=== PATIENT | female | born 1975 ===

== ENCOUNTER 2017-04-23 11:10 | Emergency (ER) | payer OTHER ==
[~2017-04-23] VITALS: Ht 154.9 cm; Wt 68.0 kg
[~2017-04-23 11:10] MED LIST: ALPR.25 PO; AMOCLA875 PO; AMOX500 PO; ATOR40TA PO; ATOR80 PO; AZIT250 PO; Aspirin EC81 MG PO; BRILINTA60 MG PO; CARV25 PO; CLOP75 PO; CODACE30 PO; FURO40 PO; HYDACE5 PO; LISI20 PO; POTCHL20ER PO; PROM25 PO; RXCODACET PO; Zithromax250 MG PO; [UNRECOGNIZED DRUG - REMARK]
[2017-04-23 13:06] LABS: BASOPHILS ABSOLUTE AUTO 0.03 K/mm3 (0.00-0.23); BASOPHILS PERCENT AUTO 1 % (0-2); EOSINOPHILS ABSOLUTE AUTO 0.39 K/mm3 (0.00-0.68); EOSINOPHILS PERCENT AUTO 6 % (0-6); Hematocrit 43.4 % (33.0-51.0); Hemoglobin 14.1 g/dL (11.5-16.0); IMMATURE GRAN ABSOLUTE AUTO 0.01 K/mm3 (0.00-0.10); IMMATURE GRAN PERCENT AUTO 0 % (0-1); LYMPHOCYTES ABSOLUTE AUTO 1.42 K/mm3 (0.84-5.20); LYMPHOCYTES PERCENT AUTO 22 % (21-46); MONOCYTES ABSOLUTE AUTO 0.47 K/mm3 (0.16-1.47); MONOCYTES PERCENT AUTO 7 % (4-13); Mean Corpuscular HGB 34.1 pg (26.0-34.0); Mean Corpuscular HGB Conc 32.5 g/dL (31.5-36.5); Mean Corpuscular Volume 105 fL (80-100); Mean Platelet Volume 10.3 fL (9.1-12.4); NEUTROPHILS ABSOLUTE AUTO 4.21 K/mm3 (1.96-9.15); NEUTROPHILS PERCENT AUTO 64 % (41-73); Platelet Count 240 K/mm3 (150-400); RDW Coefficient Variation 14.3 % (11.7-14.2); RDW Standard Deviation 55.4 fL (35.1-46.3); Red Blood Cell Count 4.13 M/mm3 (3.80-5.20); White Blood Cell Count 6.53 K/mm3 (4.00-11.30)
[2017-04-23 13:27] LABS: Alanine Aminotransfer (ALT/SGP 19 U/L (12-78); Albumin, Blood 3.2 g/dL (3.4-5.0); Albumin/Globulin Ratio 0.8 (0.8-1.8); Alk Phos 112 U/L (50-136); Anion Gap 8 mmol/L (6-16); Aspartate Aminotrans (AST/SGOT 20 U/L (12-37); Bilirubin, Total 0.3 mg/dL (0.1-1.0); Blood Urea Nitrogen 14 mg/dL (8-24); Bun/Creatinine Ratio 15.5 (12.0-20.0); CO2, Blood 22 mmol/L (21-32); Calcium, Blood 8.4 mg/dL (8.5-10.1); Chloride, Blood 110 mmol/L (98-108); Creatinine, Blood 0.91 mg/dL (0.40-1.00); Glomerular Filtration Rate >60 (60-); Glucose, Blood 129 mg/dL (70-99); Sodium, Blood 140 mmol/L (136-145); Total Protein, Blood 7.2 g/dL (6.4-8.2); Troponin I <0.015 ng/mL (0.000-0.040)
[2017-12-29] MEDS ORDERED: CEFU500T30 PO (11:16)
[2018-01-19] MEDS ORDERED: CARV25 PO (21:47)
[2018-01-19] MEDS ORDERED: Augmentin 875-1 EACH PO (21:52)
== END 2017-04-23 14:50 | disposition left against medical advice (07) ==
LOC: ER 11:10
PROVIDERS: Emergency Medicine
DX: I10 Essential (primary) hypertension (principal); R94.31 Abnormal electrocardiogram [ECG] [EKG]; R06.02 Shortness of breath; Z88.8 Allergy status to other drugs, medicaments and biological substances; Z79.82 Long term (current) use of aspirin; Z79.899 Other long term (current) drug therapy; I25.2 Old myocardial infarction; F17.200 Nicotine dependence, unspecified, uncomplicated
CPT/HCPCS: 36415; 71046; 80053; 81000; 81025; 83880; 84484; 85025; 93005; 93010; 99283

== ENCOUNTER 2017-06-08 06:05 | Inpatient (IN) | payer OTHER ==
[~2017-06-08] VITALS: Ht 154.9 cm; Wt 75.3 kg
[2017-06-08 06:46] LABS: BASOPHILS ABSOLUTE AUTO 0.05 K/mm3 (0.00-0.23); BASOPHILS PERCENT AUTO 1 % (0-2); EOSINOPHILS ABSOLUTE AUTO 0.28 K/mm3 (0.00-0.68); EOSINOPHILS PERCENT AUTO 3 % (0-6); Hemoglobin 13.6 g/dL (11.5-16.0); IMMATURE GRAN ABSOLUTE AUTO 0.03 K/mm3 (0.00-0.10); IMMATURE GRAN PERCENT AUTO 0 % (0-1); LYMPHOCYTES ABSOLUTE AUTO 1.52 K/mm3 (0.84-5.20); LYMPHOCYTES PERCENT AUTO 16 % (21-46); MONOCYTES ABSOLUTE AUTO 0.76 K/mm3 (0.16-1.47); MONOCYTES PERCENT AUTO 8 % (4-13); Mean Corpuscular HGB Conc 33.2 g/dL (31.5-36.5); Mean Corpuscular Volume 103 fL (80-100); Mean Platelet Volume 10.6 fL (9.1-12.4); NEUTROPHILS ABSOLUTE AUTO 6.77 K/mm3 (1.96-9.15); NEUTROPHILS PERCENT AUTO 72 % (41-73); Platelet Count 244 K/mm3 (150-400); RDW Coefficient Variation 13.8 % (11.7-14.2); RDW Standard Deviation 52.2 fL (35.1-46.3); White Blood Cell Count 9.41 K/mm3 (4.00-11.30)
[2017-06-08 07:02] LABS: Anion Gap 8 mmol/L (6-16); Blood Urea Nitrogen 13 mg/dL (8-24); CO2, Blood 22 mmol/L (21-32); Calcium, Blood 8.4 mg/dL (8.5-10.1); Chloride, Blood 109 mmol/L (98-108); Creatinine, Blood 0.93 mg/dL (0.40-1.00); Glomerular Filtration Rate >60 (60-); Glucose, Blood 116 mg/dL (70-99); Potassium, Blood 3.8 mmol/L (3.5-5.5); Sodium, Blood 139 mmol/L (136-145); Troponin I 0.039 ng/mL (0.000-0.040)
[2017-06-08 14:02] LABS: Magnesium, Blood 1.9 mg/dL (1.6-2.4); Troponin I <0.015 ng/mL (0.000-0.040)
[2017-06-08 14:05] LABS: Phosphorus, Blood 3.2 mg/dL (2.5-4.9)
[2017-06-08 16:53] LABS: U Amphetamine Screen DETECTED; U Barbituate Screen Not Detected; U Benzodiazapine Screen DETECTED; U Buprenorphine Screen Not Detected; U Cannabinoids Screen Not Detected; U Cocaine Screen Not Detected; U Methadone Screen Not Detected; U Methamphetamine Screen DETECTED; U Opiates Screen Not Detected; U Oxycodone Screen Not Detected; U Phencyclidine Screen Not Detected; U Propoxyphene Screen Not Detected
[2017-06-09 05:19] LABS: BASOPHILS ABSOLUTE AUTO 0.04 K/mm3 (0.00-0.23); BASOPHILS PERCENT AUTO 1 % (0-2); EOSINOPHILS ABSOLUTE AUTO 0.13 K/mm3 (0.00-0.68); EOSINOPHILS PERCENT AUTO 2 % (0-6); Hematocrit 44.5 % (33.0-51.0); Hemoglobin 14.8 g/dL (11.5-16.0); IMMATURE GRAN ABSOLUTE AUTO 0.02 K/mm3 (0.00-0.10); IMMATURE GRAN PERCENT AUTO 0 % (0-1); LYMPHOCYTES ABSOLUTE AUTO 1.28 K/mm3 (0.84-5.20); LYMPHOCYTES PERCENT AUTO 16 % (21-46); MONOCYTES ABSOLUTE AUTO 0.84 K/mm3 (0.16-1.47); MONOCYTES PERCENT AUTO 10 % (4-13); Mean Corpuscular HGB 33.6 pg (26.0-34.0); Mean Corpuscular HGB Conc 33.3 g/dL (31.5-36.5); Mean Corpuscular Volume 101 fL (80-100); Mean Platelet Volume 10.5 fL (9.1-12.4); NEUTROPHILS ABSOLUTE AUTO 5.84 K/mm3 (1.96-9.15); NEUTROPHILS PERCENT AUTO 72 % (41-73); Platelet Count 289 K/mm3 (150-400); RDW Coefficient Variation 13.9 % (11.7-14.2); RDW Standard Deviation 51.9 fL (35.1-46.3); White Blood Cell Count 8.15 K/mm3 (4.00-11.30)
[2017-06-09 05:45] LABS: Albumin, Blood 3.2 g/dL (3.4-5.0); Albumin/Globulin Ratio 0.7 (0.8-1.8); Bilirubin, Total 0.7 mg/dL (0.1-1.0); Bun/Creatinine Ratio 13.7 (12.0-20.0); Calcium, Blood 8.8 mg/dL (8.5-10.1); Creatinine, Blood 1.17 mg/dL (0.40-1.00); Globulin, Blood 4.3 g/dL (2.2-4.0); Potassium, Blood 3.5 mmol/L (3.5-5.5); Total Protein, Blood 7.5 g/dL (6.4-8.2)
[2017-06-09] MEDS ORDERED: TICA90TA PO (10:41)
[2017-06-09] MEDS ORDERED: ABAT250V (10:42)
[2017-06-09 13:11] LABS: Creatine Kinase MB 1.2 ng/mL (0.0-3.6); Creatine Kinase MB Index 2.9 (0.0-4.0); Troponin I 0.057 ng/mL (0.000-0.040)
[2017-06-09 13:15] LABS: Influenza A Negative (NEGATIVE); Influenza B Negative (NEGATIVE)
[2017-06-09 18:48] LABS: Creatine Kinase MB Index 2.5 (0.0-4.0); Troponin I 0.058 ng/mL (0.000-0.040)
[2017-06-10 01:00] LABS: Creatine Kinase MB 0.9 ng/mL (0.0-3.6); Creatine Kinase MB Index 2.3 (0.0-4.0); Troponin I 0.02 ng/mL (0.000-0.040)
[2017-06-10] MEDS ORDERED: Coreg12.5 MG PO (09:43)
[2017-06-10] MEDS ORDERED: ALBU90OI INH (09:43)
[2017-06-10] MEDS ORDERED: GUAI600T33 PO (09:50)
[2017-06-10] MEDS ORDERED: FAMO20 PO (09:50)
[2017-06-10] MEDS ORDERED: FOLI1 PO (09:50)
[2017-06-10] MEDS ORDERED: LEVO750 PO (09:51)
[2017-06-10] MEDS ORDERED: Melatonin5 M1 PO (09:52)
[2017-06-10] MEDS ORDERED: MULTI FOR HER1 EAC1 PO (09:56)
[2017-06-10] MEDS ORDERED: Prednisone20 MG PO (09:57)
[2017-06-10] MEDS ORDERED: NITR.4SL SL (10:02)
[2017-06-10] MEDS ORDERED: SPIR25 PO (10:03)
[2017-06-10] MEDS ORDERED: NICO21TP TOP (10:03)
[2017-06-10] MEDS ORDERED: THIA100 PO (10:04)
== END 2017-06-10 10:18 | disposition home or self-care (01) | DRG 292 ==
LOC: ER 06:05 → MEDS 10:02 → ENPENDDIS 06-10 09:27 → MEDS 06-10 10:18
PROVIDERS: Emergency Medicine; Family Medicine
DX: I11.0 Hypertensive heart disease with heart failure (principal); J44.1 Chronic obstructive pulmonary disease with (acute) exacerbation; I16.1 Hypertensive emergency; I50.33 Acute on chronic diastolic (congestive) heart failure; F10.20 Alcohol dependence, uncomplicated; I25.10 Atherosclerotic heart disease of native coronary artery without angina pectoris; I10 Essential (primary) hypertension; F17.210 Nicotine dependence, cigarettes, uncomplicated; I25.2 Old myocardial infarction; Z91.14 Patient's other noncompliance with medication regimen; Z95.5 Presence of coronary angioplasty implant and graft
CPT/HCPCS: 36415; 71046; 80048; 80053; 82550; 82553; 83735; 83880; 84100; 84443; 84484; 85025; 87804; 93005; 93010; 93306; 94640; 94760; 94762; 96372; 96375; 96376; G0378; J0360; J1650; J1940; J1956; J2060; J2930; J7030

== ENCOUNTER 2018-08-07 02:24 | Inpatient (IN) | payer OTHER ==
[~2018-08-07] VITALS: Ht 152.4 cm; Wt 74.0 kg
[~2018-08-07 02:24] MED LIST changes: +ABAT250V; +ALBU90OI INH; +Augmentin 875-1 EACH PO; +CEFU500T30 PO; +Coreg12.5 MG PO; +FAMO20 PO; +FOLI1 PO; +GUAI600T33 PO; +LEVO750 PO; +MULTI FOR HER1 EAC1 PO; +Melatonin5 M1 PO; +NICO21TP TOP; +NITR.4SL SL; +Prednisone20 MG PO; +SPIR25 PO; +THIA100 PO; +TICA90TA PO
[2018-08-07 03:04] LABS: BASOPHILS ABSOLUTE AUTO 0.04 K/mm3 (0.00-0.23); BASOPHILS PERCENT AUTO 0 % (0-2); EOSINOPHILS PERCENT AUTO 2 % (0-6); Hemoglobin 13.9 g/dL (11.5-16.0); IMMATURE GRAN ABSOLUTE AUTO 0.02 K/mm3 (0.00-0.10); IMMATURE GRAN PERCENT AUTO 0 % (0-1); LYMPHOCYTES ABSOLUTE AUTO 1.64 K/mm3 (0.84-5.20); LYMPHOCYTES PERCENT AUTO 18 % (21-46); MONOCYTES PERCENT AUTO 5 % (4-13); Mean Corpuscular HGB 33.9 pg (26.0-34.0); Mean Corpuscular HGB Conc 32.3 g/dL (31.5-36.5); Mean Corpuscular Volume 105 fL (80-100); Mean Platelet Volume 10.5 fL (9.1-12.4); NEUTROPHILS ABSOLUTE AUTO 6.92 K/mm3 (1.96-9.15); NEUTROPHILS PERCENT AUTO 74 % (41-73); Platelet Count 214 K/mm3 (150-400); RDW Coefficient Variation 14.8 % (11.7-14.2); RDW Standard Deviation 58.2 fL (35.1-46.3); White Blood Cell Count 9.32 K/mm3 (4.00-11.30)
[2018-08-07 03:24] LABS: Alanine Aminotransfer (ALT/SGP 31 U/L (12-78); Albumin, Blood 3.5 g/dL (3.4-5.0); Alk Phos 125 U/L (50-136); Anion Gap 9 mmol/L (6-16); Aspartate Aminotrans (AST/SGOT 17 U/L (12-37); Bilirubin, Total 0.8 mg/dL (0.1-1.0); Blood Urea Nitrogen 16 mg/dL (8-24); Bun/Creatinine Ratio 17.1 (12.0-20.0); CO2, Blood 24 mmol/L (21-32); Chloride, Blood 107 mmol/L (98-108); Creatinine, Blood 0.94 mg/dL (0.40-1.00); Globulin, Blood 3.6 g/dL (2.2-4.0); Glomerular Filtration Rate >60 (60-); Glucose, Blood 109 mg/dL (70-99); Potassium, Blood 4.1 mmol/L (3.5-5.5); Sodium, Blood 140 mmol/L (136-145); Total Protein, Blood 7.1 g/dL (6.4-8.2)
--- NOTE | 2018-08-07 06:53 | NUR ---
ARRIVAL AND SHIFT ALEJANDRO PT ARRIVED TO UNIT APPROX. 0625 VIA GURNER FROM ED. PT ABLE TO TRANSFERS FROM GURNERY TO BED WITH SBA. PT ABLE TO WALK TO BATHROOM AND TOELRATED WELL. ORIENTED PT TO ROOM, UNIT AND POLICIES. ASSESSMENT COMPLETED. VITAL SIGNS STABLE, ALTHOUGHT BLOOD PRESSURE SLIGHTLY ELEVATED BUT TRENDING DOWN. WAS UNABLE TO COMPLETED MEDICATION RECONCILIATION DUE TO PT UNABLE TO KNOW MEDICATIONS AND THEIR NAMES. THERE WERE [employer] NO MEDICAITONS LISTS ON [employer] BUT PT REPORTS THAT SHE PREVIOUSLY WAS PRESCRIBED MEDICATIONS BUT HASNT TAKEN THEM. SHE REPROTS SHE GETS THEM FILLED AT [facility]. PT SLEEPY AT THIS TIME. BED IN LOW POSITION, CALL LIGHT IN REACH AND PT DENIES ANY NEEDS AT THIS TIME. WILL CONTINUE TO MONITOR UNTIL HANDOFF TO DAYSHIFT RN.
--- NOTE | 2018-08-07 10:13 | NUR ---
The pt states that she has not been taking her medications for about a year or two. States that she has been trying to get "clean" from drug use for the past year. Her last prescriptions were filled at [facility], but there is no record currently of her most recent prescriptions there. duplicating machine mechanic at this time contacting the cardiology office to get list of the pt's prescriptions as the pt was seeing Dr. Jefferson in the past.
[2018-08-07] MEDS ORDERED: Aspir 8181 MG PO (10:32)
[2018-08-07] MEDS ORDERED: ATOR40TA PO (10:33)
[2018-08-07] MEDS ORDERED: FURO40 PO (10:33)
[2018-08-07] MEDS ORDERED: CARV25 PO (10:33)
[2018-08-07] MEDS ORDERED: LISI20 PO (10:34)
[2018-08-07] MEDS ORDERED: K-Dur20 MEQ PO (10:35)
[2018-08-07] MEDS ORDERED: BRILINTA90 MG PO (10:35)
[2018-08-07] MEDS ORDERED: Micro-K10 MEQ PO (10:36)
--- NOTE | 2018-08-07 13:48 | NUR ---
Kayy awakes easily to voice. Her SO was present at bedside. she denied concerns and told me she feels she will continue getting better. I introduced the benefits and purpose of an Advanced Directive. She agreed this would be useful for her as she'd like her SO to be her MPOA. I gave her the information packet and advised that pastoral/palliative care would be available to help with its completion. She allowed me to pray for her, but was otherwise pleasantly dismissive. She wanted to sleep.
--- NOTE | 2018-08-07 13:54 | NUR ---
The pt has been candid, cheerful, and cooperative with care. She was given coreg and blood pressure and heart rate will be assessed closely. Nitroglycerin patch was removed per Dr. Abbasi to help relieve the pt's c/o headache. Ultram was given also for headache, as the pt stated she got no relief from Tylenol given early this morning for headache. An hour after the nitro patch was removed, she has no relief from the headache yet. It could of course also be due to her high blood pressure. ambulatory to the bathroom to void frequently. DEnies chest pain or difficulty breathing. Good appetite.
--- NOTE | 2018-08-07 14:18 | NUR ---
Notified of 6 beat run of ventricular tachycardia by the residential monitor tech. The pt was found sleeping, HOB eleved 45 degrees, and blood pressure taken: 169/123, heart rate 98 bpm. She denies any pain, states that even her headache is gone.
--- NOTE | 2018-08-07 16:35 | NUR ---
following apresoline administration, the pt states she feels lightheaded. She is sitting up in bed, states that she has no pain at this time, but is requesting more drink. Earlier I had explained to her about the fluid restriction. She states now "but all I've had to drink is this cup right here." I reminded her about the milk and drinks which she had with meals, too. She verbalized understanding. A popscicle was given to her at this time. Blood pressure was taken, noted 139/90. Explained to the pt that her body is probably not used to the lower pressure, as she hasn't been on medications for 1-2 years, per her own admission. She tells me now that she had high blood pressure diagnosed when she was 10 or 11 years old. I emphasized for her safety that she needs to have a staff member with her when she gets up due to her symptoms. She verbalized understanding.
--- NOTE | 2018-08-07 17:57 | NUR ---
The pt is absent from her room at this time. Telemetry monitoring has been interrupted; the pt must be out of range, perhaps outside the building smoking. 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
--- NOTE | 2018-08-07 18:08 | NUR ---
The pt returned to the room at this time; STates that she went outside to see a friend, and had a cigarette. Reminded the pt about concern for her lightheadedness and that she was going to call before getting up; she states that she forgot. Requested and strongly recommended that the patient not go outside, and not smoke anymore, for the purpose of her health, but also for the telemetry monitoring. States that she probably won't, that she will try.
--- NOTE | 2018-08-07 19:15 | NUR ---
ASSUMED CARE OF PT, REPORT RCV'D FROM SILVANA SUN. PT ALERT AND ORIENTED SITTING ON THE SIDE OF THE BED. PT STATES THAT SHE WAS "FEELING DIZZY" AFTER RECEIVING DOSE OF LASIX AND REQUESTING A COLD WASHCLOTH. PT REPOSITIONED IN BED WITH COLD WASHCLOTH ON HER NECK AND A FAN NEEDED. PT WAS REMINDED TO REQUEST ASSISTANCE BEFORE ATTEMPTING TO AMBULATE UNTIL SHE IS STEADY ON HER FEET. PT WENT OUTSIDE TO "SMOKE" DURING DAYSHIFT WITHOUT LETTING DAYSHIFT NURSE OR TELE KNOW. PT STATES SHE WILL "LET ME KNOW". PT'S LUNG SOUNDS CLEAR T/O WITH OCCASIONAL NON-PRODUCTIVE COUGH. PT ON ROOM AIR. IV IN RAC SL. PT DENIES NEEDS AT THIS TIME. PT'S DAUGHTER AT BEDSIDE. SEE FULL SHIFT ASSESSMENT.
--- NOTE | 2018-08-08 04:01 | NUR ---
PT'S DAUGHTER VICENTA CALLED AND WAS UPDATED ON PT'S STATUS.
[2018-08-08 04:14] LABS: Alanine Aminotransfer (ALT/SGP 27 U/L (12-78); Albumin, Blood 3.4 g/dL (3.4-5.0); Albumin/Globulin Ratio 0.8 (0.8-1.8); Alk Phos 133 U/L (50-136); Anion Gap 9 mmol/L (6-16); Aspartate Aminotrans (AST/SGOT 18 U/L (12-37); Bilirubin, Total 0.7 mg/dL (0.1-1.0); Blood Urea Nitrogen 28 mg/dL (8-24); Bun/Creatinine Ratio 26.7 (12.0-20.0); CO2, Blood 24 mmol/L (21-32); Calcium, Blood 8.8 mg/dL (8.5-10.1); Chloride, Blood 103 mmol/L (98-108); Creatinine, Blood 1.05 mg/dL (0.40-1.00); Globulin, Blood 4.2 g/dL (2.2-4.0); Glomerular Filtration Rate >60 (60-); Glucose, Blood 126 mg/dL (70-99); Potassium, Blood 3.8 mmol/L (3.5-5.5); Sodium, Blood 136 mmol/L (136-145); Total Protein, Blood 7.6 g/dL (6.4-8.2)
--- NOTE | 2018-08-08 06:26 | NUR ---
SHIFT SUMMARY NO ACUTE CHANGES OVERNIGHT. PT HAD 1 EPISODE OF HTN (180/130) THAT WAS CORRECTED WITH HYDRALAZINE. PT ABLE TO INDEPENDENTLY AMBULATE TO USE TOILET WITH NO C/O DIZZINESS/LIGHTHEADED. SEE SHIFT NOTES AND ASSESSMENTS. WILL REPORT TO DAYSHIFT NURSE.
--- NOTE | 2018-08-08 07:29 | NUR ---
pt laying in bed awake a/ox3, cooperative with care, follows commands well, denies pain or sob, states she feels ok, speaks very fast, and is diff to understand at times, lungs are clear dim in bases, resp even and unlabored, no cough noted, hrr, tele in place running sr per monitor, see strip, very trace edema noted to b/l le, ppp+2, cap refill <3sec, vs stable, afebrile, iv site is clear and patent, btx4, abd flat soft nontender, voids without diff, skin c/w/d, maew, joshua, call light in reach.
--- NOTE | 2018-08-08 10:39 | NUR ---
DR. PASCUAL ASKED THAT WE HOLD OFF ON HER MEDS UNTIL SHE REVIEWS THEM AND WE GET A SET OF ORTHOS. PT HAS A VISITOR, AND IS GOING OUT TO SMOKE AT THIS TIME, CALL TO DR. PASCUAL FOR STATUS CHANGE SHE SAID SHE MAY DISCHARGE HER.
--- NOTE | 2018-08-08 14:45 | NUR ---
pt decided she wants to go home ama, briefly spoke with Dr. Abbasi, she said ok. director had her sign ama form, explained the risks. she packed her belongings and left via ambulation. iv was removed by director intact.
--- NOTE | 2018-08-08 16:36 | NUR ---
Pt dischareged and will follow up if she responds
== END 2018-08-08 14:48 | disposition left against medical advice (07) | DRG 293 ==
LOC: ER 02:24 → PCU 05:47
PROVIDERS: Emergency Medicine; ADMIT Hospitalist
DX: I11.0 Hypertensive heart disease with heart failure (principal); I50.23 Acute on chronic systolic (congestive) heart failure; I95.1 Orthostatic hypotension; I25.10 Atherosclerotic heart disease of native coronary artery without angina pectoris; F19.10 Other psychoactive substance abuse, uncomplicated; Z91.14 Patient's other noncompliance with medication regimen; Z95.5 Presence of coronary angioplasty implant and graft; F17.210 Nicotine dependence, cigarettes, uncomplicated; F10.20 Alcohol dependence, uncomplicated
CPT/HCPCS: 36415; 71046; 80053; 83735; 83880; 84484; 85025; 93005; 93010; 93306; 94640; 96374; 99285-25; J0360; J1650; J1940

== ENCOUNTER 2018-11-04 21:45 | Emergency (ER) | payer OTHER ==
[~2018-11-04] VITALS: Ht 157.5 cm; Wt 68.0 kg
[~2018-11-04 21:45] MED LIST changes: +Aspir 8181 MG PO; +BRILINTA90 MG PO; +K-Dur20 MEQ PO; +Micro-K10 MEQ PO
[2018-11-04 22:10] LABS: BASOPHILS ABSOLUTE AUTO 0.04 K/mm3 (0.00-0.23); BASOPHILS PERCENT AUTO 0 % (0-2); EOSINOPHILS ABSOLUTE AUTO 0.15 K/mm3 (0.00-0.68); EOSINOPHILS PERCENT AUTO 2 % (0-6); Hematocrit 42.2 % (33.0-51.0); Hemoglobin 13.9 g/dL (11.5-16.0); IMMATURE GRAN ABSOLUTE AUTO 0.04 K/mm3 (0.00-0.10); IMMATURE GRAN PERCENT AUTO 0 % (0-1); LYMPHOCYTES ABSOLUTE AUTO 1.42 K/mm3 (0.84-5.20); LYMPHOCYTES PERCENT AUTO 15 % (21-46); MONOCYTES ABSOLUTE AUTO 0.67 K/mm3 (0.16-1.47); MONOCYTES PERCENT AUTO 7 % (4-13); Mean Corpuscular HGB 34.8 pg (26.0-34.0); Mean Corpuscular HGB Conc 32.9 g/dL (31.5-36.5); Mean Corpuscular Volume 106 fL (80-100); Mean Platelet Volume 10.1 fL (9.1-12.4); NEUTROPHILS ABSOLUTE AUTO 7.01 K/mm3 (1.96-9.15); NEUTROPHILS PERCENT AUTO 75 % (41-73); Platelet Count 261 K/mm3 (150-400); RDW Coefficient Variation 14.1 % (11.7-14.2); RDW Standard Deviation 55.6 fL (35.1-46.3); Red Blood Cell Count 3.99 M/mm3 (3.80-5.20); White Blood Cell Count 9.33 K/mm3 (4.00-11.30)
[2018-11-04 22:24] LABS: Alanine Aminotransfer (ALT/SGP 21 U/L (12-78); Albumin, Blood 3.3 g/dL (3.4-5.0); Albumin/Globulin Ratio 0.8 (0.8-1.8); Alk Phos 148 U/L (50-136); Anion Gap 8 mmol/L (6-16); Aspartate Aminotrans (AST/SGOT 18 U/L (12-37); Bilirubin, Total 0.6 mg/dL (0.1-1.0); Blood Urea Nitrogen 11 mg/dL (8-24); Bun/Creatinine Ratio 9.9 (12.0-20.0); CO2, Blood 25 mmol/L (21-32); Calcium, Blood 8.7 mg/dL (8.5-10.1); Chloride, Blood 108 mmol/L (98-108); Creatinine, Blood 1.11 mg/dL (0.40-1.00); Globulin, Blood 3.9 g/dL (2.2-4.0); Glomerular Filtration Rate 57 (60-); Glucose, Blood 99 mg/dL (70-99); Potassium, Blood 3.9 mmol/L (3.5-5.5); Sodium, Blood 141 mmol/L (136-145); Total Protein, Blood 7.2 g/dL (6.4-8.2); Troponin I <0.015 ng/mL (0.000-0.040)
== END 2018-11-04 22:54 | disposition home or self-care (01) ==
LOC: ER 21:45
PROVIDERS: Emergency Medicine
DX: R07.9 Chest pain, unspecified (principal); F15.129 Other stimulant abuse with intoxication, unspecified; I50.9 Heart failure, unspecified; F17.210 Nicotine dependence, cigarettes, uncomplicated; Z91.018 Allergy to other foods; Z79.82 Long term (current) use of aspirin; Z79.899 Other long term (current) drug therapy; Z79.02 Long term (current) use of antithrombotics/antiplatelets
CPT/HCPCS: 36415; 71046; 80053; 84484; 85025; 93005; 93010; 99285-25

== ENCOUNTER 2018-11-05 11:54 | Observation (INO) | payer OTHER ==
[~2018-11-05] VITALS: Ht 154.9 cm; Wt 68.0 kg
[2018-11-05 13:51] LABS: BASOPHILS ABSOLUTE AUTO 0.03 K/mm3 (0.00-0.23); BASOPHILS PERCENT AUTO 0 % (0-2); EOSINOPHILS ABSOLUTE AUTO 0.11 K/mm3 (0.00-0.68); EOSINOPHILS PERCENT AUTO 2 % (0-6); Hematocrit 44.5 % (33.0-51.0); Hemoglobin 14.6 g/dL (11.5-16.0); IMMATURE GRAN ABSOLUTE AUTO 0.03 K/mm3 (0.00-0.10); IMMATURE GRAN PERCENT AUTO 0 % (0-1); LYMPHOCYTES PERCENT AUTO 15 % (21-46); MONOCYTES ABSOLUTE AUTO 0.52 K/mm3 (0.16-1.47); MONOCYTES PERCENT AUTO 7 % (4-13); Mean Corpuscular HGB 34.7 pg (26.0-34.0); Mean Corpuscular HGB Conc 32.8 g/dL (31.5-36.5); Mean Corpuscular Volume 106 fL (80-100); Mean Platelet Volume 10.5 fL (9.1-12.4); NEUTROPHILS ABSOLUTE AUTO 5.61 K/mm3 (1.96-9.15); NEUTROPHILS PERCENT AUTO 76 % (41-73); Platelet Count 261 K/mm3 (150-400); RDW Coefficient Variation 14.2 % (11.7-14.2); RDW Standard Deviation 55.7 fL (35.1-46.3); Red Blood Cell Count 4.21 M/mm3 (3.80-5.20)
[2018-11-05 14:08] LABS: Alanine Aminotransfer (ALT/SGP 20 U/L (12-78); Albumin, Blood 3.2 g/dL (3.4-5.0); Albumin/Globulin Ratio 0.8 (0.8-1.8); Alk Phos 136 U/L (50-136); Anion Gap 6 mmol/L (6-16); Aspartate Aminotrans (AST/SGOT 18 U/L (12-37); Blood Urea Nitrogen 10 mg/dL (8-24); Bun/Creatinine Ratio 9.9 (12.0-20.0); CO2, Blood 23 mmol/L (21-32); Chloride, Blood 107 mmol/L (98-108); Creatinine, Blood 1.01 mg/dL (0.40-1.00); Globulin, Blood 3.8 g/dL (2.2-4.0); Glomerular Filtration Rate >60 (60-); Glucose, Blood 94 mg/dL (70-99); Sodium, Blood 136 mmol/L (136-145); Troponin I <0.015 ng/mL (0.000-0.040)
[2018-11-05 14:41] LABS: U Amphetamine Screen DETECTED; U Barbituate Screen Not Detected; U Benzodiazapine Screen Not Detected; U Buprenorphine Screen Not Detected; U Cannabinoids Screen Not Detected; U Cocaine Screen Not Detected; U Methadone Screen Not Detected; U Methamphetamine Screen DETECTED; U Opiates Screen Not Detected; U Oxycodone Screen Not Detected; U Phencyclidine Screen Not Detected; U Propoxyphene Screen Not Detected
--- NOTE | 2018-11-05 19:17 | NUR ---
NEW ER ADMIT LATE THIS AFTERNOON APPROX 1800. DX CHEST PAIN. SHE STATE NO PAIN @ THIS TIME, STATE DISCOMFORT WAS MORE OF A L CHEST PRESSURE THAN PAIN, STATE RELIEF FOLLOWING NITRO PATCH IN ER. SHE IS A/O X4, PLEASANT AFFECT. UP IND TO BR & AMBULATE OUT OF ROOM, GAIT STEADY. CARDIAC DINNER TRAY ORDERED. BP 178/125, HR 103. ORDERED METOPROLOL 25 MG PO GIVEN. TELE PLACED, SR 96/MX TECH. REPORT TO UDAY PINA WHO WILL FINISH ADMISSION.
--- NOTE | 2018-11-05 23:48 | NUR ---
PT NOTED AT BEGINNING OF SHIFT TO BE WANDERING FREQUENTLY OFF UNIT TO SMOKE, THIS NURSE DISCUSSED WITH PATIENT NEED TO LIMIT SMOKE BREAKS TO NO MORE THAN TWO REST OF NIGHT FOR 30 MINUTES SO THAT TELEMETRY UNIT CAN BE PROPERLY MONITORED AND TO NOTIFY THIS NURSE WHEN DEPARTING AND RETURNING WITH PATIENT IN AGREEMENT TO THIS ARRANGEMENT.
--- NOTE | 2018-11-06 05:08 | NUR ---
SHIFT SUMMARY: 43 Y/O FEMALE RESTED COMFORTABLY ALL SHIFT WITH NO C/O PAIN, NAUSEA OR DYSPNEA, TELEMETRY REFLECTS NSR WITH HEART RATE 76, HAPPY AND COOPERATIVE, PT AGREED TO NOTIFY STAFF WHEN GOING/RETURNING FROM SMOKING OUTSIDE AND TO ALSO LIMIT TIME OFF FLOOR TO LESS THAN 30 MINUTES, GAIT SLOW AND STEADY, AT 0454 BP 169/115 WITH APRESOLINE 10MG IVP GIVEN, BED LOW POSITION, CALL LIGHT AT SIDE.
[2018-11-06] MEDS ORDERED: ASPI81CH PO (12:02)
[2018-11-06] MEDS ORDERED: LISI20 PO (12:04)
[2018-11-06] MEDS ORDERED: FURO20 PO (12:04)
[2018-11-06] MEDS ORDERED: METO25ER PO (12:05)
--- NOTE | 2018-11-06 13:10 | NUR ---
discharge PT STATE NO CHEST PAIN OR CHEST PRESSURE THIS AM, STATE FEELING IMPROVED. BP 166/110, AM METOPROLOL, ZESTRIL & LASIX GIVEN. DR STANLEY IN TO SEE PT STATE OK FOR D/C TODAY. IV D/C INTACT, TELE NSR 70-80'S WHEN D/C'D. PT STATE UNABLE TO PAY FOR MEDICATIONS, ORDERS FAXED TO [facility], THEY WERE ABLE TO VERIFY THAT HER INSURANCE COVER ALL COST, NO COPAY. D/C INSTRUCT REVIEWED W PT & FAMILY. PT CHOOSES TO AMBULATE W FAMILY FROM HOSP. SHE IS PLEASANT, APPRECIATIVE.
== END 2018-11-06 13:07 | disposition home or self-care (01) ==
LOC: ER 11:54 → MEDS 11:55 → ENPENDDIS 11-06 10:36 → MEDS 11-06 13:07
PROVIDERS: Emergency Medicine; ADMIT Internal Medicine
DX: I16.0 Hypertensive urgency (principal); F15.10 Other stimulant abuse, uncomplicated; I25.10 Atherosclerotic heart disease of native coronary artery without angina pectoris; I11.0 Hypertensive heart disease with heart failure; I50.22 Chronic systolic (congestive) heart failure; F17.210 Nicotine dependence, cigarettes, uncomplicated; Z91.14 Patient's other noncompliance with medication regimen; Z95.5 Presence of coronary angioplasty implant and graft
CPT/HCPCS: 36415; 71046; 80053; 84484; 85025; 93005; 93010; 96372-59; 96374; 96375; 99285-25; G0378; J0360; J1650; J1940

== ENCOUNTER 2020-04-07 20:31 | Emergency (ER) | payer OTHER ==
[~2020-04-07] VITALS: Ht 157.5 cm; Wt 86.2 kg
[~2020-04-07 20:31] MED LIST changes: +ASPI81CH PO; +FURO20 PO; +METO25ER PO
[2020-04-07] MEDS ORDERED: Toprol Xl25 MG PO ×2 (21:20→21:57)
[2020-04-07] MEDS ORDERED: LISI20 PO ×2 (21:20→21:57)
[2020-04-07] MEDS ORDERED: Aspirin EC81 MG PO (21:20)
[2020-04-07] MEDS ORDERED: ALBU90OI INH ×2 (21:20→21:57)
[2020-04-07 21:31] LABS: BASOPHILS ABSOLUTE AUTO 0.02 K/mm3 (0.00-0.23); BASOPHILS PERCENT AUTO 0 % (0-2); EOSINOPHILS ABSOLUTE AUTO 0.17 K/mm3 (0.00-0.68); EOSINOPHILS PERCENT AUTO 2 % (0-6); Hematocrit 44.2 % (33.0-51.0); Hemoglobin 14.2 g/dL (11.5-16.0); IMMATURE GRAN ABSOLUTE AUTO 0.03 K/mm3 (0.00-0.10); IMMATURE GRAN PERCENT AUTO 0 % (0-1); LYMPHOCYTES ABSOLUTE AUTO 1.12 K/mm3 (0.84-5.20); LYMPHOCYTES PERCENT AUTO 10 % (21-46); MONOCYTES ABSOLUTE AUTO 0.73 K/mm3 (0.16-1.47); MONOCYTES PERCENT AUTO 7 % (4-13); Mean Corpuscular HGB 32.8 pg (26.0-34.0); Mean Corpuscular HGB Conc 32.1 g/dL (31.5-36.5); Mean Corpuscular Volume 102 fL (80-100); Mean Platelet Volume 10.3 fL (9.1-12.4); NEUTROPHILS ABSOLUTE AUTO 8.71 K/mm3 (1.96-9.15); NEUTROPHILS PERCENT AUTO 81 % (41-73); Platelet Count 209 K/mm3 (150-400); RDW Coefficient Variation 12.9 % (11.7-14.2); RDW Standard Deviation 49.5 fL (35.1-46.3); Red Blood Cell Count 4.33 M/mm3 (3.80-5.20); White Blood Cell Count 10.78 K/mm3 (4.00-11.30)
[2020-04-07 21:51] LABS: Alanine Aminotransfer (ALT/SGP 19 U/L (12-78); Albumin, Blood 3.6 g/dL (3.4-5.0); Alk Phos 106 U/L (50-136); Anion Gap 7 mmol/L (6-16); Aspartate Aminotrans (AST/SGOT 11 U/L (12-37); Bilirubin, Total 0.7 mg/dL (0.1-1.0); Blood Urea Nitrogen 13 mg/dL (8-24); CO2, Blood 26 mmol/L (21-32); Calcium, Blood 8.8 mg/dL (8.5-10.1); Chloride, Blood 107 mmol/L (98-108); Creatinine, Blood 0.93 mg/dL (0.40-1.00); Globulin, Blood 3.6 g/dL (2.2-4.0); Glomerular Filtration Rate >60 (60-); Glucose, Blood 97 mg/dL (70-99); Potassium, Blood 3.9 mmol/L (3.5-5.5); Sodium, Blood 140 mmol/L (136-145); Total Protein, Blood 7.2 g/dL (6.4-8.2); Troponin I 0.019 ng/mL (0.000-0.040)
[2020-04-07] MEDS ORDERED: ASPIR 8181 M1 PO (21:57)
[2020-04-12] MEDS ORDERED: Zithromax250 MG PO (08:27)
== END 2020-04-07 22:14 | disposition home or self-care (01) ==
LOC: ER 20:31
PROVIDERS: Emergency Medicine
DX: J44.1 Chronic obstructive pulmonary disease with (acute) exacerbation (principal); Z76.0 Encounter for issue of repeat prescription; I11.0 Hypertensive heart disease with heart failure; I50.22 Chronic systolic (congestive) heart failure; I25.2 Old myocardial infarction; I25.10 Atherosclerotic heart disease of native coronary artery without angina pectoris; Z79.82 Long term (current) use of aspirin; Z95.5 Presence of coronary angioplasty implant and graft; Z79.899 Other long term (current) drug therapy; Z91.018 Allergy to other foods
CPT/HCPCS: 71045; 80053; 84484; 85025; 94640; 94664; 99284-25; A9270; J1100

== ENCOUNTER 2024-02-26 18:17 | Emergency (ER) | payer OTHER ==
[~2024-02-26] VITALS: Ht 154.9 cm; Wt 68.0 kg
[~2024-02-26 18:17] MED LIST changes: +ASPIR 8181 M1 PO; +Toprol Xl25 MG PO
[2024-02-26 18:42] VITALS: BP 190/106
[2024-02-26] MEDS ORDERED: Ketorolac Tromethamine 30mg Vial IM ONE (18:45)
== END 2024-02-26 19:22 | disposition home or self-care (01) ==
LOC: ER 18:17
DX: S39.012A Strain of muscle, fascia and tendon of lower back, initial encounter (principal); X58.XXXA Exposure to other specified factors, initial encounter; I50.9 Heart failure, unspecified; F17.210 Nicotine dependence, cigarettes, uncomplicated; Z95.5 Presence of coronary angioplasty implant and graft; Z91.018 Allergy to other foods; Z79.82 Long term (current) use of aspirin; Z79.899 Other long term (current) drug therapy
CPT/HCPCS: 12011; 90471; 99283-25; J1885

== ENCOUNTER 2024-02-27 22:56 | Inpatient (IN) | payer OTHER ==
[~2024-02-27] VITALS: Ht 162.6 cm; Wt 79.0 kg
[2024-02-27 23:47] LABS: Bun/Creatinine Ratio 15.4 (12.0-20.0); Calcium, Blood 9.6 mg/dL (8.5-10.1); Creatinine, Blood 1.17 mg/dL (0.40-1.00); Globulin, Blood 3.9 g/dL (2.2-4.0); Potassium, Blood 4.5 mmol/L (3.5-5.5); Total Protein, Blood 7.9 g/dL (6.4-8.2)
[2024-02-27 23:49] LABS: CORONAVIRUS COVID-19 AG Negative (NEGATIVE); INFLUENZA A AG Negative (NEGATIVE); INFLUENZA B AG Negative (NEGATIVE)
[2024-02-28] MEDS ORDERED: CefTRIAXone Sodium 1,000 MG in NS 50 ML IV ONE (00:10)
[2024-02-28] MEDS ORDERED: NS 1,000 ML IV SCH (00:10)
[2024-02-28] MEDS ORDERED: Azithromycin 500 MG in NS 250 ML IV ONE (00:10)
[2024-02-28 00:12] LABS: BASOPHILS ABSOLUTE AUTO 0.04 K/mm3 (0.00-0.23); BASOPHILS PERCENT AUTO 1 % (0-2); EOSINOPHILS ABSOLUTE AUTO 0.03 K/mm3 (0.00-0.68); EOSINOPHILS PERCENT AUTO 0 % (0-6); Hematocrit 40.7 % (33.0-51.0); Hemoglobin 13.8 g/dL (11.5-16.0); IMMATURE GRAN ABSOLUTE AUTO 0.05 K/mm3 (0.00-0.10); IMMATURE GRAN PERCENT AUTO 1 % (0-1); LYMPHOCYTES ABSOLUTE AUTO 0.87 K/mm3 (0.84-5.20); LYMPHOCYTES PERCENT AUTO 11 % (21-46); MONOCYTES ABSOLUTE AUTO 0.47 K/mm3 (0.16-1.47); MONOCYTES PERCENT AUTO 6 % (4-13); Mean Corpuscular HGB 32.9 pg (26.0-34.0); Mean Corpuscular HGB Conc 33.9 g/dL (31.5-36.5); Mean Corpuscular Volume 97 fL (80-100); NEUTROPHILS ABSOLUTE AUTO 6.63 K/mm3 (1.96-9.15); NEUTROPHILS PERCENT AUTO 82 % (41-73); NRBC ABSOLUTE 0.03 K/mm3 (0.00-0.02); NRBC Auto 0.4 /100 WBC (0.0-0.2); RDW Coefficient Variation 14.4 % (11.7-14.2); RDW Standard Deviation 51.5 fL (35.1-46.3); White Blood Cell Count 8.09 K/mm3 (4.00-11.30)
[2024-02-28] MEDS ORDERED: Ibuprofen 600 MG Tab PO ONE (00:15)
[2024-02-28] MEDS ORDERED: Acetaminophen 325 MG TABLET PO ONE (00:15)
[2024-02-28] MEDS ORDERED: Ipratropium/Albuterol SulF 2.5-0.5MG/3 ML Amp INH ONE (00:20)
[2024-02-28] MEDS ORDERED: MethylPREDNISolone Sod Succ 125 MG Vial IV ONE (00:20)
[2024-02-28 00:25] LABS: Platelet Count 170 K/mm3 (150-400)
[2024-02-28] MEDS ORDERED: Ipratropium/Albuterol SulF 2.5-0.5MG/3 ML Amp INH SCH (03:00)
[2024-02-28] MEDS ORDERED: FLU VACC TS2024-25(6MOS UP)/PF 45 MCG/0.5 ML SYRINGE IM ONE (03:00)
[2024-02-28] MEDS ORDERED: Acetaminophen 325 MG TABLET PO PRN (03:05)
[2024-02-28] MEDS ORDERED: Nitroglycerin 0.4 MG SUBL SL PRN (03:05)
[2024-02-28 03:25] LABS: Base Excess Venous -3.9 mmol/L; Bicarbonate Venous 21.7 mmol/L (24.0-30.0); PCO2 Venous 36.2 mmHg (38-42); pH Blood Venous 7.38 (7.34-7.37)
[2024-02-28] MEDS ORDERED: HydrALAZINE HCl 20 MG / ML 1ML Vial IV PRN (03:25)
[2024-02-28 04:55] LABS: BASOPHILS ABSOLUTE AUTO 0.02 K/mm3 (0.00-0.23); BASOPHILS PERCENT AUTO 0 % (0-2); EOSINOPHILS PERCENT AUTO 0 % (0-6); Hematocrit 41.5 % (33.0-51.0); Hemoglobin 13.3 g/dL (11.5-16.0); IMMATURE GRAN ABSOLUTE AUTO 0.02 K/mm3 (0.00-0.10); IMMATURE GRAN PERCENT AUTO 0 % (0-1); LYMPHOCYTES ABSOLUTE AUTO 0.54 K/mm3 (0.84-5.20); LYMPHOCYTES PERCENT AUTO 7 % (21-46); MONOCYTES ABSOLUTE AUTO 0.17 K/mm3 (0.16-1.47); MONOCYTES PERCENT AUTO 2 % (4-13); Mean Corpuscular HGB 31.8 pg (26.0-34.0); Mean Corpuscular Volume 99 fL (80-100); Mean Platelet Volume 10.8 fL (9.1-12.4); NEUTROPHILS ABSOLUTE AUTO 7.56 K/mm3 (1.96-9.15); NEUTROPHILS PERCENT AUTO 91 % (41-73); Platelet Count 160 K/mm3 (150-400); RDW Coefficient Variation 14.5 % (11.7-14.2); RDW Standard Deviation 52.7 fL (35.1-46.3); Red Blood Cell Count 4.18 M/mm3 (3.80-5.20); White Blood Cell Count 8.31 K/mm3 (4.00-11.30)
[2024-02-28 05:15] LABS: Albumin, Blood 3.5 g/dL (3.4-5.0); Albumin/Globulin Ratio 0.9 (0.8-1.8); Bilirubin, Total 0.9 mg/dL (0.1-1.0); Bun/Creatinine Ratio 15.2 (12.0-20.0); Calcium, Blood 8.8 mg/dL (8.5-10.1); Creatinine, Blood 1.12 mg/dL (0.40-1.00); Globulin, Blood 3.8 g/dL (2.2-4.0); Potassium, Blood 4.3 mmol/L (3.5-5.5); Total Protein, Blood 7.3 g/dL (6.4-8.2)
[2024-02-28 06:21] VITALS: BP 176/106
[2024-02-28 06:41] LABS: U Amphetamine Screen DETECTED; U Barbituate Screen Not Detected; U Benzodiazapine Screen Not Detected; U Buprenorphine Screen Not Detected; U Cannabinoids Screen Not Detected; U Cocaine Screen Not Detected; U Methadone Screen Not Detected; U Methamphetamine Screen DETECTED; U Opiates Screen Not Detected; U Oxycodone Screen Not Detected; U Phencyclidine Screen Not Detected
--- NOTE | 2024-02-28 06:47 | NUR ---
SHIFT SUMMARY ASSUMED CARE OF PT AT 06. PT ARRIVED TO [facility] AND WAS BLAE TO WALKE FROM GURNEY TO BED BUT WAS UNSTEADY AND NEEDED HELP. PT DID NOT KNOW DATE OR WHERE SHE WAS WHEN SHE FIRST WOKE UP, THOUGHT IT WAS [place], BUT KNEW WHAT TOWN AND WHY SHE WAS AT THE HOSPITAL AFTER REORIENTED. PT ON 3L NC UPON ARRIVAL, PT TITRATED TO 2L. SKIN ASSESSMENT CLEAR. PT VERY LETHARGIC AND FALLING ASLEEP DURING CONVERSATION, PT EASILY AWOKEN BUT IS VERY DROWSY. PT CAME UP WITH A FRIEND. FRIENDS STATES HE LIVES WITH HER AND HELPS TAKE CARE OF HER DOGS.
[2024-02-28 08:33] VITALS: BP 177/106
[2024-02-28] MEDS ORDERED: Aspirin 81 MG Chew PO SCH (09:00)
[2024-02-28] MEDS ORDERED: Lisinopril 20 MG Tab PO SCH (09:00)
[2024-02-28] MEDS ORDERED: GuaiFENesin 600 MG TabCR PO SCH (09:00)
[2024-02-28] MEDS ORDERED: Enoxaparin 40 MG/0.4 ML SYR SC SCH (09:00)
[2024-02-28] MEDS ORDERED: Furosemide 10 MG / ML 2ML Vial IV SCH (09:00)
[2024-02-28] MEDS ORDERED: Empagliflozin 10 MG TAB PO SCH (09:00)
[2024-02-28] MEDS ORDERED: Nicotine 14 MG PATCH TOP SCH (09:05)
--- NOTE | 2024-02-28 09:55 | NUR ---
Pt. is awake and sitting on her bed when she welcomes my visit. Pt. is pleasant, and I was able to facilitate a life review as I listened with interest and empathy. Pt. displays evidence of curiosity as we considered matters of mark and belief. Prayed with pt. Pt. verbalized gratitude for the spiritual care visit.
--- NOTE | 2024-02-28 10:44 | NUR ---
AM NOTE this rn assumed care at 0700. vital signs stable. spo2 >90% on 2l nc. tele sinus rhythm 86. patient is alet and oriented x4. patient is able to make needs known and uses call light appropriately. denies pain, chest pain/pressure or shortness of breath. see shift assessment for further details. md de leon in to see patient and discussed the need to quit meth for her heart heatlh, using lasix to get the fluid out of her lungs, and having an echo done. echo currently in the room. plan of care up to date
[2024-02-28 11:08] VITALS: BP 139/95
[2024-02-28] MEDS ORDERED: Albuterol 2.5 MG/3 ML VIAL INH PRN (12:10)
[2024-02-28] MEDS ORDERED: Ipratropium/Albuterol SulF 2.5-0.5MG/3 ML Amp INH PRN (12:10)
[2024-02-28 17:20] VITALS: BP 134/102
--- NOTE | 2024-02-28 17:31 | NUR ---
shift summary no acute changes throughout the shift. vitals remain stable. neuro remains unchanged. plan remains up to date
[2024-02-28 20:07] VITALS: BP 148/102
[2024-02-28] MEDS ORDERED: NS 250 ML IV PRN (20:20)
[2024-02-28] MEDS ORDERED: CefTRIAXone Sodium 1,000 MG in NS 100 ML IV SCH (21:00)
[2024-02-28] MEDS ORDERED: Azithromycin 500 MG in NS 250 ML IV SCH (21:00)
[2024-02-28 23:38] VITALS: BP 138/86
--- NOTE | 2024-02-29 00:52 | NUR ---
TRANSFER ASSUMED CARE OF PT AT 1900. PT IS A/OX4. HEART SOUNDS REGULAR. LUNG SOUNDS HAVE WHEEZING IN THE L LUNG FEILDS. PT TITRATED TO RA, SATURATIONS ABOVE 95%. PT INDENDENT TO BEDSIDE COMMODE. PT EDUCATED EXTENSIVLY ABOUT HEART FAILURE AND METH USE. PT VERBALIZES UNDERSTANDING AND SAYS SHES TRYING TO QUIT. REPORT GIVEN TO LEILANI FOR ROOM 301. PT TOLERATED TRANSFER WELL.
[2024-02-29 00:53] VITALS: BP 173/116
[2024-02-29 03:57] VITALS: BP 168/106
[2024-02-29 05:12] LABS: BASOPHILS ABSOLUTE AUTO 0.02 K/mm3 (0.00-0.23); BASOPHILS PERCENT AUTO 0 % (0-2); EOSINOPHILS ABSOLUTE AUTO 0.02 K/mm3 (0.00-0.68); EOSINOPHILS PERCENT AUTO 0 % (0-6); Hematocrit 39.9 % (33.0-51.0); Hemoglobin 13.1 g/dL (11.5-16.0); IMMATURE GRAN ABSOLUTE AUTO 0.03 K/mm3 (0.00-0.10); IMMATURE GRAN PERCENT AUTO 0 % (0-1); LYMPHOCYTES PERCENT AUTO 14 % (21-46); MONOCYTES PERCENT AUTO 6 % (4-13); Mean Corpuscular HGB 32.5 pg (26.0-34.0); Mean Corpuscular HGB Conc 32.8 g/dL (31.5-36.5); Mean Corpuscular Volume 99 fL (80-100); Mean Platelet Volume 11.5 fL (9.1-12.4); NEUTROPHILS ABSOLUTE AUTO 6.26 K/mm3 (1.96-9.15); NEUTROPHILS PERCENT AUTO 79 % (41-73); Platelet Count 178 K/mm3 (150-400); RDW Coefficient Variation 14.6 % (11.7-14.2); RDW Standard Deviation 53.5 fL (35.1-46.3); Red Blood Cell Count 4.03 M/mm3 (3.80-5.20); White Blood Cell Count 7.93 K/mm3 (4.00-11.30)
--- NOTE | 2024-02-29 05:12 | NUR ---
SHIFT SUMMARY PT ALERT AND ORIENTED TIMES 4. PT ADMITTED FOR ACUTE RESPIRATORY FAILURE. PT IS ON ROOM AIR AND INDEPENDENT. PT ABLE TO AMBULATE TO TOILET AND CHAIR. PT HAS HX OF COPD, ASTHMA, AND TESTED POSITIVE FOR METH. PT WAS RECEPTIVE TO CARE. PT TOOK HS MEDICATION AND IS APPROPRIATE WITH CALL LIGHT. PT ABLE TO MAKE NEEDS KNOWN. BED IN LOW POSITION, CALL LIGHT WITHIN REACH, RAILS TIMES 2.
[2024-02-29 05:45] LABS: Calcium, Blood 9.1 mg/dL (8.5-10.1); Creatinine, Blood 1.24 mg/dL (0.40-1.00); Potassium, Blood 3.5 mmol/L (3.5-5.5)
[2024-02-29 07:12] VITALS: BP 164/103
[2024-02-29] MEDS ORDERED: Carvedilol 6.25 MG Tab PO SCH (08:00)
[2024-02-29] MEDS ORDERED: Potassium Chloride 20 MEQ TabCR PO SCH (09:00)
--- NOTE | 2024-02-29 14:19 | NUR ---
SHIFT SUMMARY PT RESTING QUIETLY AT START OF SHIFT. WOKE EASILY FOR CARE. PT UP IN RM AND TO BTHRM INDEPENDENTLY. UP TO EOB FOR MEALS. DR EDDY IN TO SEE PT AND DISCUSS PLAN OF CARE. PT REPORTED FEELING BETTER AND BREATHING BETTER. LUNGS T/O STILL SLIGHTLY COARSE. PT ALSO ENCOURAGED TO CALL FOR RT TX'S IF NEEDED. DR EDDY ALSO DISCUSSED SMOKING CESSATION AND ELIMINATING METH. MEDICATIONS ADJUSTED; SEE EMAR. PT LEFT RM TODAY FOR A WHILE AND THEN RETURNED. PT LATER C/O ABD PAIN. PT REPORTING NO BM FOR SEVERAL DAYS. PT OFFERED PRUNE JUICE, BUT DECLINED AND THEN LATER REPORTING BM. FAMILY IN TO VISIT THIS AFTERNOON. PT RESTING QUIETLY AT THIS TIME. CALL LT IN REACH.
[2024-02-29 14:55] VITALS: BP 168/106
[2024-02-29 19:31] VITALS: BP 157/111
[2024-03-01 03:15] VITALS: BP 133/98
--- NOTE | 2024-03-01 05:39 | NUR ---
SHIFT SUMMARY PT ALERT AND ORIENTED TIMES 4. PT WAS RECEPTIVE TO CARE, TOOK HS MEDICATION AND IS APPROPRIATE WITH CALL LIGHT. PT ABLE TO MAKE NEEDS KNOWN PT ABLE TO AMBULATE TO TOILET. PT REQUESTED BED IN LOW POSITION, CALL LIGHT WITHIN REACH, RAILS TIMES 2.
[2024-03-01 06:16] LABS: Bun/Creatinine Ratio 28.3 (12.0-20.0); Calcium, Blood 9.4 mg/dL (8.5-10.1); Creatinine, Blood 0.99 mg/dL (0.40-1.00); Potassium, Blood 3.6 mmol/L (3.5-5.5)
[2024-03-01 07:17] VITALS: BP 135/96
[2024-03-01] MEDS ORDERED: CARV6.25 PO (10:40)
[2024-03-01] MEDS ORDERED: FURO40 PO (10:41)
[2024-03-01] MEDS ORDERED: JARDIANCE10 MG PO (10:41)
[2024-03-01] MEDS ORDERED: Nicoderm Cq1 EAC1 TOP (10:41)
[2024-03-01] MEDS ORDERED: ENTRESTO 24 MG1 EACH PO (10:42)
[2024-03-01] MEDS ORDERED: POTCHL20ER PO (10:42)
--- NOTE | 2024-03-01 14:44 | NUR ---
SHIFT SUMMARY AND DISCHARGE PATIENT ALERT AND INTERACTIVE. PATIENT AMBULATING INDEPENDENTLY. DISCHARGE INSTRUCTIONS REVIEWED WITH PATIENT. RX SENT TO [facility] PER PT REQUEST. EDUCATION PROVIDED RELATED TO DIET, SALT INTAKE, MEDICATIONS, STOP SMOKING AND STOP USING METH. PATIENT DOES NOT HAVE A PCP. PATIENT INTRUCTED TO WORK WITH INSURANCE AND GET PCP. PATIENT TO FOLLOW UP WITH CARDIOLOGY. IV DC'D. BELONGINGS SENT HOME WITH PATIENT. ROOM CHECK DONE BEFORE DEPARTURE. PATIENT TAKEN OUT VIA WHEELCHAIR.
[2024-03-01] MEDS ORDERED: Sacubitril/Valsartan 24 MG-26 MG Tab PO SCH (21:00)
== END 2024-03-01 11:23 | disposition home or self-care (01) | DRG 291 ==
LOC: ER 22:56 → ERHOLD 02-28 03:23 → MEDS 02-28 03:23 → PCU 02-28 03:23 → MEDS 02-29 01:00
PROVIDERS: Internal Medicine; Student in an Organized Health Care Education/Training Program; ADMIT Student in an Organized Health Care Education/Training Program
DX: I13.0 Hypertensive heart and chronic kidney disease with heart failure and stage 1 through stage 4 chronic kidney disease, or unspecified chronic kidney disease (principal); G92.8 Other toxic encephalopathy; I50.43 Acute on chronic combined systolic (congestive) and diastolic (congestive) heart failure; J96.01 Acute respiratory failure with hypoxia; J44.0 Chronic obstructive pulmonary disease with (acute) lower respiratory infection; J44.1 Chronic obstructive pulmonary disease with (acute) exacerbation; F17.210 Nicotine dependence, cigarettes, uncomplicated; I25.10 Atherosclerotic heart disease of native coronary artery without angina pectoris; F15.10 Other stimulant abuse, uncomplicated; Z91.018 Allergy to other foods; N18.31 Chronic kidney disease, stage 3a; F10.10 Alcohol abuse, uncomplicated; Z79.82 Long term (current) use of aspirin; Z79.811 Long term (current) use of aromatase inhibitors; Z79.899 Other long term (current) drug therapy; Z79.51 Long term (current) use of inhaled steroids; Z79.2 Long term (current) use of antibiotics; Z95.5 Presence of coronary angioplasty implant and graft; Z90.49 Acquired absence of other specified parts of digestive tract; Z91.148 Patient's other noncompliance with medication regimen for other reason; S39.012A Strain of muscle, fascia and tendon of lower back, initial encounter; X58.XXXA Exposure to other specified factors, initial encounter
CPT/HCPCS: 12011; 36415; 71046; 80048; 80053; 80320; 82803; 83605; 83690; 83735; 83880; 84145; 84484; 85025; 85379; 87040; 87428-QW; 90471; 93005; 93010; 93306; 94640; 94664; 94760; 94762; 96361; 96365; 96367; 96375; 99283-25; 99285-25; A9270; J0456; J0696; J1885; J1940; J2919; J7030; J7050